=== PATIENT | male | born 1995 | race Two or more races ===

== ENCOUNTER 2017-08-03 00:02 | Emergency (ER) | payer OTHER ==
[~2017-08-03] VITALS: Ht 172.7 cm; Wt 122.5 kg
[2017-08-03] MEDS ORDERED: ZOFRAN ODT4 MG PO ×2 (05:10)
[2017-08-03] MEDS ORDERED: PEPCID40 MG PO ×2 (05:10)
== END 2017-08-03 16:59 | disposition home or self-care (01) ==
LOC: ER 00:02
DX: K52.9 Noninfective gastroenteritis and colitis, unspecified (principal)